=== PATIENT | male | born 2000 | race Caucasian/White ===

== ENCOUNTER 2023-03-30 11:16 | Emergency (ER) | payer SELFPAY ==
[2023-03-30 11:23] VITALS: BP 112/68; PULSE 85; RESP 20; TEMP 36.9; O2SAT 98; BMI 25.8
--- NOTE | 2023-03-30 11:29 | US_ITS ---
The [address] [address] Patient Name: REYNA RIOS MRN: [id number] date: 2000 Sex: M Assigned Patient Location: ED.MAIN Current Patient Location: ER Accession/Order Number: [id number] Exam Date: 03/30/2023 11:38 Report Date: 03/30/2023 12:51 At the request of: LIZA BURGOS Procedure: US right upper quadrant EXAMINATION: US right upper quadrant HISTORY: Abdominal pain, history of gallbladder issues COMPARISON: No relevant comparison available. TECHNIQUE: Transabdominal evaluation of the right upper quadrant. FINDINGS: LIVER: Normal size and echotexture. Color Doppler demonstrates patent hepatic veins. PORTAL VEIN: Duplex Doppler demonstrates normal hepatopetal flow pattern with flow velocity averaging 35 cm/s. GALLBLADDER: Several polyps versus stones adherent to the gallbladder wall, largest is 5 mm. No abnormal wall thickening or free fluid. BILIARY: No abnormal dilation or stones. Common bile duct diameter is within normal limits. PANCREASE: No visible mass, abnormal atrophy, or duct dilation. KIDNEY: No hydronephrosis. No visible mass or stones. Size: 12.2 x 5.6 x 4.8 cm IMPRESSION: 1. No evidence of acute cholecystitis. 2. Multiple small polyps versus small adherent stones within the gallbladder, of uncertain clinical significance. Electronically authenticated by: BALTA ISRAEL Date: 03/30/2023 12:51
--- NOTE | 2023-03-30 11:32 | ED.ABDPAIN1 ---
HPI - Abdominal Pain General Chief Complaint: Abdominal Pain Stated Complaint: ABDOMINAL PAIN Time Seen by Provider: 03/30/23 11:25 Source: patient Mode of arrival: walk-in Limitations: no limitations History of Present Illness HPI narrative: 22-year-old male presents for abdominal pain. He points across his upper abdomen and states he's had it for a few days. He's been vomiting and having diarrhea. No trauma or fever. He tells me he thinks he may have had a problem with his pancreas in the past and was told at one point he should get his gallbladder taken out.The pain is moderate and continuous and he's asking for pain medicine. No fever. Related Data Previous Rx's Medication Instructions Recorded dicyclomine 10 mg capsule 10 mg PO TID #20 caps 03/30/23 ondansetron HCl 4 mg tablet 4 mg PO Q8H 5 days #15 tabs 03/30/23 Allergies Allergy/AdvReac Type Severity Reaction Status Date / Time shellfish derived Allergy Severe Verified 03/30/23 11:22 Review of Systems ROS Narrative A ten point review of systems is negative except as noted above. Exam Narrative Exam Narrative: Nurses note and vital signs reviewed and patient is not hypoxic. General: The patient appears uncomfortable and in no apparent distress. Skin: Warm, dry, no pallor noted. There is no rash noted. Head: Normocephalic, atraumatic Eye: Normal conjunctiva, no drainage, EOMI. PERRL Ears, Nose, Mouth, and Throat: oral mucosa is moist. Nares patent. Cardiovascular: Regular Rate and Rhythm Respiratory: Patient is in no distress, no accessory muscle use, lungs are clear to auscultation, no wheezing, rales or rhonchi Back: non-tender GI: Normal bowel sounds, Mild tenderness to palpation across the upper abdomen, no masses appreciated. No rebound, guarding, or rigidity noted. Musculoskeletal: The patient has no evidence of calf tenderness, no pitting edema, symmetrical pulses noted bilaterally Neurological: A&O x4, normal speech Psychiatric: Cooperative Constitutional Vital Signs - 24 hr 03/30/23 11:23 Temperature 98.5 F Pulse Rate [Monitor] 85 Respiratory Rate 20 Blood Pressure [Left Arm] 112/68 Pulse Oximetry 98 Course Vital Signs Vital signs: Vital Signs Temperature 98.5 F 03/30/23 11:23 Pulse Rate 85 03/30/23 11:23 Respiratory Rate 20 03/30/23 11:23 Blood Pressure 112/68 03/30/23 11:23 Pulse Oximetry 98 03/30/23 11:23 Temperature 98.5 F 03/30/23 11:23 Pulse Rate 85 03/30/23 11:23 Respiratory Rate 20 03/30/23 11:23 Blood Pressure 112/68 03/30/23 11:23 Pulse Oximetry 98 03/30/23 11:23 MDM - Abdominal Pain MDM Narrative Medical decision making narrative: Laboratory analysis is negative. Gallbladder ultrasound shows some possible stones. He does not have acute cholecystitis or pancreatitis. He doesn't require admission the hospital. He is hungry and wants to eat here and he is able to be discharged. Treatment diagnosis and follow-up were discussed with the patient. Differential Diagnosis Differential diagnosis: Likely abdominal pain, constipation, gastroenteritis, pancreatitis and small bowel obstruction Lab Data Attestation: I reviewed the patient's lab results. Labs: Lab Results 03/30/23 Range/Units 11:40 WBC 7.8 (4.0-11.0) 10^3/uL RBC 4.73 (4.70-6.10) 10^6/uL Hgb 14.0 (14.0-18.0) g/dL Hct 41.9 L (42.0-54.0) % MCV 88.6 (80.0-94.0) fL MCH 29.6 (25.9-34.0) pg MCHC 33.4 (29.9-35.2) g/dL RDW 12.6 (11.0-15.0) % Plt Count 275 (150-450) 10^3/uL MPV 8.5 L (9.5-13.5) fL Neut % (Auto) 47.8 (43.0-75.0) % Lymph % (Auto) 28.4 (20.5-60.0) % Jenkins % (Auto) 8.1 (1.7-12.0) % Eos % (Auto) 12.4 H (0.9-7.0) % Baso % (Auto) 0.8 (0.2-2.0) % Neut # (Auto) 3.7 (1.4-6.5) 10^3/uL Lymph # (Auto) 2.2 (1.2-3.8) 10^3/uL Jenkins # (Auto) 0.6 (0.3-0.8) 10^3/uL Eos # (Auto) 1.0 H (0.0-0.7) 10^3/uL Baso # (Auto) 0.1 (0.0-0.1) 10^3/uL Abs Immat Gran (auto) 0.19 H (0.00-0.03) 10^3/uL Imm/Tot Granulo (auto) 2.5 H (0.0-0.5) % Sodium 139 (136-145) mmol/L Potassium 3.8 (3.5-5.1) mmol/L Chloride 103 (98-107) mmol/L Carbon Dioxide 27.8 (21.0-32.0) mmol/L Anion Gap 12.0 BUN 15.0 (7.0-18.0) mg/dL Creatinine 0.83 (0.70-1.30) mg/dL Est GFR ( Amer) >60 (>=60) Est GFR (Non-Af Amer) >60 (>=60) BUN/Creatinine Ratio 18.1 Glucose 110 H (74-106) mg/dL Calcium 8.7 (8.5-10.1) mg/dL Total Bilirubin 0.1 L (0.2-1.0) mg/dL AST 7 L (15-37) U/L ALT 20 (16-63) U/L Alkaline Phosphatase 73 (46-116) U/L Total Protein 6.9 (6.4-8.2) g/dL Albumin 3.4 (3.4-5.0) g/dL Globulin 3.5 g/dL Albumin/Globulin Ratio 1.0 Amylase 46 (25-115) U/L Lipase 62.0 L (73.0-393.0) U/L Discharge Plan Discharge Chief Complaint: Abdominal Pain Clinical Impression: Abdominal pain Patient Disposition: Home, Self-Care Time of Disposition Decision: 13:01 Condition: Good Mode of Transportation: Private Vehicle Prescriptions / Home Meds: New dicyclomine 10 mg capsule 10 mg PO TID Qty: 20 0RF ondansetron HCl 4 mg tablet 4 mg PO Q8H 5 Days Qty: 15 0RF Instructions: Abdominal Pain (ED) Stand Alone Forms: Portal Instructions Referrals: Physician,Non-Staff, MD [Primary Care Provider] - 1 week
[2023-03-30] MEDS: ONDANSETRON PF 4 MG/2 ML VIAL IV (11:48)
[2023-03-30] MEDS: KETOROLAC TROMETHAMINE 30 MG/ML VIAL IVP (11:48)
[2023-03-30] MEDS: 0.9 % SODIUM CHLORIDE 1,000 ML 100 ML IV (11:49)
[2023-03-30 12:04] LABS: Basophils Absolute Auto 0.1 10^3/uL (0.0-0.1); Basophils Percent Auto 0.8 % (0.2-2.0); Eosinophils Percent Auto 12.4 % (0.9-7.0); Hematocrit 41.9 % (42.0-54.0); Immature Granulocytes Abs Auto 0.19 10^3/uL (0.00-0.03); Immature Granulocytes Pct Auto 2.5 % (0.0-0.5); Lymphocytes Absolute Auto 2.2 10^3/uL (1.2-3.8); Lymphocytes Percent Auto 28.4 % (20.5-60.0); Mean Corpuscular HGB Conc 33.4 g/dL (29.9-35.2); Mean Corpuscular Hemoglobin 29.6 pg (25.9-34.0); Mean Corpuscular Volume 88.6 fL (80.0-94.0); Mean Platelet Volume 8.5 fL (9.5-13.5); Monocytes Absolute Auto 0.6 10^3/uL (0.3-0.8); Monocytes Percent Auto 8.1 % (1.7-12.0); Neutrophils Absolute Auto 3.7 10^3/uL (1.4-6.5); Neutrophils Percent Auto 47.8 % (43.0-75.0); Platelet Count 275 10^3/uL (150-450); Red Blood Count 4.73 10^6/uL (4.70-6.10); Red Cell Distribution Width 12.6 % (11.0-15.0); White Blood Count 7.8 10^3/uL (4.0-11.0)
[2023-03-30 12:21] LABS: Alanine Aminotransferase 20 U/L (16-63); Albumin Level 3.4 g/dL (3.4-5.0); Alkaline Phosphatase 73 U/L (46-116); Amylase 46 U/L (25-115); Aspartate Amino Transferase 7 U/L (15-37); BUN Creatinine Ratio 18.1; Bilirubin Total 0.1 mg/dL (0.2-1.0); Calcium 8.7 mg/dL (8.5-10.1); Carbon Dioxide 27.8 mmol/L (21.0-32.0); Chloride 103 mmol/L (98-107); Estimated GFR (African America >60 (>=60); Estimated GFR (Non-African Ame >60 (>=60); Globulin 3.5 g/dL; Glucose 110 mg/dL (74-106); Potassium 3.8 mmol/L (3.5-5.1); Sodium 139 mmol/L (136-145); Total Protein 6.9 g/dL (6.4-8.2)
[2023-03-30 13:28] VITALS: BP 117/65; PULSE 82; RESP 16; O2SAT 99
== END 2023-03-30 13:32 | disposition home or self-care (01) ==
PROVIDERS: Emergency Provider Emergency Medicine
DX: R10.9 Unspecified abdominal pain (principal)
CPT/HCPCS: 36415; 76705; 80053; 81003; 82150; 83690; 85025; 96374; 96375; 99284

== ENCOUNTER 2025-03-09 10:55 | Emergency (ER) | payer OTHER, SELFPAY ==
[2025-03-09 11:01] VITALS: BP 128/77; PULSE 76; O2SAT 99
--- NOTE | 2025-03-09 11:17 | CT_ITS ---
The [address] [address] Patient Name: REYNA RIOS MRN: [id number] date: 2000 Sex: M Assigned Patient Location: ED.MAIN Current Patient Location: ED.MAIN Accession/Order Number: [id number] Exam Date: 03/09/2025 12:07 Report Date: 03/09/2025 12:09 At the request of: TIMUR BECERRA MD Procedure: CT head/brain wo con Unenhanced head CT TECHNIQUE: Contiguous axial imaging of the head. The CT exam was performed using one or more the following dose reduction techniques: Automated exposure control, adjustment of the MA and/or Kv according to patient size, or use of the iterative reconstruction technique. COMPARISON: None HISTORY: Headache VENTRICLES: Within normal limits ATROPHY: None BRAIN PARENCHYMA: Adequate nance-white matter differentiation identified. HEMORRHAGE: None HERNIATION: No mass effect or herniation INFARCTION: No recent vascular distribution infarction is seen. EXTRA-AXIAL FLUID COLLECTIONS None MIDBRAIN: Unremarkable [place]: Unremarkable MEDULLA: Unremarkable SINUSES: Sphenoid sinus retention cyst/mucosal polyp. ORBITS: Grossly unremarkable MASTOIDS: Unremarkable BONY STRUCTURES Intact ADDITIONAL FINDINGS: CT/CT head/brain wo con IMPRESSION: No acute findings. Impression dictated by: Flaco Mantilla M.D. 03/09/2025 12:09 PM Dictation Location: [place] [address] Electronically authenticated by: [id number] Y Date: 03/09/2025 12:09
[2025-03-09] MEDS: KETOROLAC TROMETHAMINE 30 MG/ML VIAL IM (11:53)
--- NOTE | 2025-03-09 12:16 | ED.GENADUL1 ---
HPI HPI - General Adult General Chief complaint: Headache Stated complaint: HEADACHE Time Seen by Provider: 03/09/25 11:17 Source: patient Mode of arrival: walk-in Limitations: no limitations History of Present Illness HPI narrative: The patient is coming to the ER from a detox facility where he was getting treatment for meth detox he is coming to the ER with a headache for the last 1 week. 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 although the patient is referred to that at the cancer he was not sure what kind of cancer , the patient also denies treatment which she does not fit his history The patient denies any alarming symptoms of any blurry vision double vision or any other concerns Related Data Previous Rx's ?Medication ?Instructions ?Recorded dicyclomine 10 mg capsule 10 mg PO TID #20 caps 03/30/23 ondansetron HCl 4 mg tablet 4 mg PO Q8H 5 days #15 tabs 03/30/23 Allergies Allergy/AdvReac Type Severity Reaction Status Date / Time shellfish derived Allergy Severe Swelling Verified 03/09/25 11:01 of Lip/Tongue/Throat Opioid HPI Opioid Management Most Recent Opioid Data: Last Pain Scale 9 Today, 11:01 Review of Systems ROS Status of ROS 10 or more systems reviewed and unremarkable except as noted in history and below PFSH PFSH Social History Little interest or pleasure in doing things: not at all Feeling down, depressed, or hopeless: not at all Exam Narrative Exam Narrative: Nurses notes and vital signs reviewed and patient is not hypoxic. General: Well-appearing and in no apparent distress. Skin: Warm, dry, no pallor noted. No rash. Head: Normocephalic, atraumatic. Neck: Supple, non-tender. Eye: Pupils are equal, round and EOMI. No scleral icterus. Ears, Nose, Mouth, and Throat: TM are clear, no nasal mucosal hypertrophy. Oral mucosa is moist, no posterior oropharynx erythema, uvula is mid-line Cardiovascular: Regular Rate and Rhythm without murmur, gallop or rub. Respiratory: No accessory muscle use or respiratory distress. Lungs are clear to auscultation, no wheezing, rales or rhonchi Chest Wall: no tenderness Back: No midline thoracic or lumbar vertebral tenderness. No CVA tenderness Musculoskeletal: normal ROM, no calf or popliteal tenderness, no lower extremity edema/swelling GI: Abdomen is soft, non-distended. Normal bowel sounds. No masses appreciated. No tenderness to palpation. No rebound, guarding, or rigidity noted. Neurological: A&O x4. No cranial nerve dysfunction observed. No truncal ataxia. Moves all extremities. Sensation intact. Psychiatric: Cooperative and interactive. Normal mood and affect. Constitutional Vital Signs, click to edit/add: Last Vital Signs Pulse 76 03/09/25 11:01 Resp 16 03/09/25 11:01 BP 128/77 03/09/25 11:01 Pulse Ox 99 03/09/25 11:01 O2 Del Method Room Air 03/09/25 11:01 Course Vital Signs Vital signs: Vital Signs Pulse Rate 76 03/09/25 11:01 Respiratory Rate 16 03/09/25 11:01 Blood Pressure 128/77 03/09/25 11:01 Pulse Oximetry 99 03/09/25 11:01 Oxygen Delivery Method Room Air 03/09/25 11:01 Pulse Rate 76 03/09/25 11:01 Respiratory Rate 16 03/09/25 11:01 Blood Pressure 128/77 03/09/25 11:01 Pulse Oximetry 99 03/09/25 11:01 Oxygen Delivery Method Room Air 03/09/25 11:01 Medical Decision Making [facility] Narrative Medical decision making narrative: Due to the patient history and the fact that he been having this pain for the last 1 week the patient had a CT head showing no acute significant pathology He was provided Toradol in the ER Patient was discharged back to the [facility] Discharge Plan Discharge Chief Complaint: Headache Clinical Impression: Headache Patient Disposition: Home, Self-Care Time of Disposition Decision: 12:17 Condition: Good Prescriptions / Home Meds: No Action dicyclomine 10 mg capsule 10 mg PO TID Qty: 20 0RF ondansetron HCl 4 mg tablet 4 mg PO Q8H 5 Days Qty: 15 0RF Print Language: Welsh Instructions: General Headache (ED) Referrals: Physician,Non-Staff, MD [Primary Care Provider] - 1 week Discharge Date/Time: 03/09/25 12:42
== END 2025-03-09 12:42 | disposition home or self-care (01) ==
PROVIDERS: Emergency Provider Emergency Medicine
DX: R51.9 Headache, unspecified (principal); H54.61 Unqualified visual loss, right eye, normal vision left eye
CPT/HCPCS: 70450; 96372; 99285; J1885

== ENCOUNTER 2025-03-12 14:22 | Emergency (ER) | payer OTHER, SELFPAY ==
--- OUTSIDE RECORDS SUMMARY | 2025-02-27 22:07 | XMS_ITS | Continuity of Care Document ---
Author Organization [facility] Address [address] [place] [address] Phone Care Team Providers Care Director Of Student Services Name Role Phone NO FAMILY, PHYSICIAN Primary Care Provider Unava ilMikhail Coles DO Emergency Provider Unavai Venkatesh Rothman MD Admit Provider [phone] Venkatesh Calles MD Attending Provider Care Teams Patient Care Team Team Status: Active Member Role Status Dates PHYSICIAN NO FAMILY Primary Care Provider Active Visit Care Team Team Status: Inactive Member Role Status Dates PHYSICIAN NO FAMILY Primary Care Provider Active Start: February 19, 2025 End: February 21, 2025 Mikhail Mark DO Emergency Provider Active Start: February 19, 2025 End: February 21, 2025 Venkatesh Calles MD Admit Provider, Attclaudy rosarioing Provider Active Start: February 19, 2025 End: February 21, 2025 Patient Care Team Team Status: Active Member Role Status Dates PHYSICIAN NO FAMILY Primary Care Provider Active Start: February 19, 2025 Mikhail Mark DO Emergency Provider Active Start: February 19, 2025 Venkatesh Calles MD Admit Provider, Atte nding Provider, Other Provider Active Start: February 19, 2025 Chief Complaint and Reason for Visit Chief Complaint Admit Date suicidal February 19, 2025 12:06 am suicidal February 19, 2025 12:41 pm Reason for Visit Admit Date MDD (major depressive disorder) February 12:06am Suicidal ideation February 19, 2025 12:06 am Allergies, Adverse Reactions, Alerts Allergen Type Severity Reaction Last Updated Verified Status shellfish derived Allergy Unknown Unknown Reaction M ay 2024 8:50pm Yes Active Social History Smoking Status Status Start Date End Date Date of Observa tion Smoker (finding) February 18, 2 025 8:57pm Observation Status Observation Response Date of Response Patient Sex Male February 21, 2025 1 2:09pm Assigned Sex Male 2000 Family History Relationship Condition Age at Onset Recorded Date/T maya Not Specified No pertinent family history Unknown Problems Active Problems Medical Problem Onset Date Status MDD (major depressive disorder) Active Suicidal ideation Active Medications Medication Status Dose Units Route Directions Qty Days St art Date Stop Date End Date Instructions Trazodone 50 mg Tablet Active 50 MG PO Daily at bedtime as needed for Insomnia February 21, 2025 12:00a m Nicotine (Polacrilex) 2 mg Gum Active 2 MG BUCCAL Q2H as needed for Nicotine Cravings February 21, 2025 12:00a m Hydroxyzine Pamoate 50 mg Capsule Active 50 MG PO Q6H as needed for Anxiety 60 February 21, 2025 12:00a m Sertraline 50 mg Tablet Active 50 MG PO Every morning February 21, 2025 12:00a m Relevant Diagnostic Tests and/or Laboratory Data Laboratory Results Test Date/Time Result Interpretation Reference Range Result Comment Performing Site Corrected White Blood Count February 18, 2025 8:53pm 5.4 10*3/uL 4.1-10.5 [facility] [id number] [address] [facility] [address] Uncorrected WBC Count February 18, 2025 8:53pm 5.4 10*3/uL 4.1-10.5 [facility] [id number] [address] [facility] [address] Red Blood Count February 18, 2025 8:53pm 4.90 10*6/uL 3.90-5.60 [facility] [id number] [address] [facility] [address] Hemoglobin February 18, 2025 8:53pm 14.7 g/dL 13.0-17.0 [facility] [id number] [address] [facility] [address] Hematocrit February 18, 2025 8:53pm 42.2 % 38.8-50.0 [facility] [id number] [address] [facility] [address] Mean Corpuscular Volume February 18, 2025 8:53pm 86.1 fL 83.5-101 [facility] [id number] [address] [facility] [address] Mean Corpuscular Hemoglobin February 18, 2025 8:53pm 30.0 pg 27.5-35.2 [facility] [id number] [address] [facility] [address] Mean Corpuscular Hemoglobin Concent February 18, 2025 8:53pm 34.8 g/dL 32.5-35.6 [facility] [id number] [address] [facility] [address] Red Cell Distribution Width February 18, 2025 8:53pm 12.6 % 12.0-14.8 [facility] [id number] [address] [facility] [address] Platelet Count February 18, 2025 8:53pm 378 10*3/uL 150-450 [facility] [id number] [address] [facility] [address] Mean Platelet Volume February 18, 2025 8:53pm 6.7 fL 6.6-10.1 [facility] [id number] [address] [facility] [address] Monocyte Distribution Width February 18, 2025 8:53pm 17.77 % 0.00-20.00 [facility] [id number] [address] [facility] [address] Neutrophils (%) (Auto) February 18, 2025 8:53pm 46.0 % . [facility] [id number] [address] [facility] [address] Lymphocytes (%) (Auto) February 18, 2025 8:53pm 40.7 % . [facility] [id number] [address] [facility] [address] Monocytes (%) (Auto) February 18, 2025 8:53pm 8.3 % . [facility] [id number] [address] [facility] [address] Eosinophils (%) (Auto) February 18, 2025 8:53pm 4.1 % . [facility] [id number] [address] [facility] [address] Basophils (%) (Auto) February 18, 2025 8:53pm 0.9 % . [facility] [id number] [address] [facility] [address] Nucleated RBC Relative Count (auto) February 18, 2025 8:53pm 0.2 /100{WBC} 0-0.5 [facility] [id number] [address] [place] 6238870 Neutrophils # (Auto) February 18, 2025 8:53pm 2.5 10*3/uL 1.8-7.7 [facility] [id number] [address] [place] 6238870 Lymphocytes # (Auto) February 18, 2025 8:53pm 2.2 10*3/uL 1.00-4.8 [facility] [id number] [address] [place] 6238870 Monocytes # (Auto) February 18, 2025 8:53pm 0.4 10*3/uL 0.0-0.8 [facility] [id number] [address] [facility] [address] Eosinophils # (Auto) February 18, 2025 8:53pm 0.2 10*3/uL 0.0-0.45 [facility] [id number] [address] [place] 6238870 Basophils # (Auto) February 18, 2025 8:53pm 0.0 10*3/uL 0.0-0.2 [facility] [id number] [address] [place] 6238870 Urine Color February 18, 2025 9:00pm Light-yel low Yellow [facility] [id number] [address] [place] 6238870 Urine Appearance February 18, 2025 9:00pm Turbid Abnormal (applies to non-numeric results) Clear [facility] [id number] [address] [place], [place] [address] Urine Specific [place] February 18, 2025 9:00pm 1.022 1.001-1.03 0 [facility] [id number] [address] [facility] [address] Urine pH February 18, 2025 9:00pm 8.0 5.0-9.0 [facility] [id number] [address] [facility] [address] Urine Leukocyte Esterase February 18, 2025 9:00pm Negative Negative [facility] [id number] [address] [facility] [address] Urine Nitrite February 18, 2025 9:00pm Negative Negative [facility] [id number] [address] [facility] [address] Urine Protein February 18, 2025 9:00pm Negative mg/dL Negative [facility] [id number] [address] [facility] [address] Urine Glucose (UA) February 18, 2025 9:00pm Normal mg/dL Normal [facility] [id number] [address] [facility] [address] Urine Ketones February 18, 2025 9:00pm Negative Negative [facility] [id number] [address] [facility] [address] Urine Urobilinogen February 18, 2025 9:00pm Normal mg/dL Normal [facility] [id number] [address] [facility] [address] Urine Bilirubin February 18, 2025 9:00pm Negative Negative [facility] [id number] [address] [facility] [address] Urine Occult Blood February 18, 2025 9:00pm Negative Negative [facility] [id number] [address] [facility] [address] Urine RBC February 18, 2025 9:00pm 1-2 [HPF] 0-4 [facility] [id number] [address] [facility] [address] Urine WBC February 18, 2025 9:00pm 1-2 [HPF] 0-4 [facility] [id number] [address] [facility] [address] Urine Squamous Epithelial Cells February 18, 2025 9:00pm N/A [facility] [id number] [address] [facility] [address] Urine Bacteria February 18, 2025 9:00pm None seen [HPF] None Seen [facility] [id number] [address] [facility] [address] Urine Hyaline Casts February 18, 2025 9:00pm None [LPF] 0-8 [facility] [id number] [address] [facility] [address] Urine Mucus February 18, 2025 9:00pm Rare [LPF] [facility] [id number] [address] [facility] [address] Glucose Level February 18, 2025 9:23pm 99 mg/dL 70-100 ADA recommended reference rangeRandom Glucose Reference Range is dependent on time and content of last meal. Glucose of more than 200 mg/dL in a nonstressed, ambulatory subject supports the diagnosis of Diabetes Mellitus. [facility] [id number] [address] [facility] [address] Blood Urea Nitrogen February 18, 2025 9:23pm 15 mg/dL 7-25 [facility] [id number] [address] [facility] [address] Creatinine February 18, 2025 9:23pm 0.91 mg/dL 0.70-1.30 [facility] [id number] [address] [facility] [address] Estimated GFR (CKD-EPI) February 18, 2025 9:23pm > 60.0 mL/Min [facility] [id number] [address] [facility] [address] Sodium Level February 18, 2025 9:23pm 136 mmol/L 136-145 [facility] [id number] [address] [facility] [address] Potassium Level February 18, 2025 9:23pm 4.3 mmol/L 3.5-5.1 [facility] [id number] [address] [place] 6[address]8870 Chloride Level February 18, 2025 9:23pm 105 mmol/L 98-107 [facility] [id number] [address] [place] 6238870 Carbon Dioxide Level February 18, 2025 9:23pm 25.0 mmol/L 21.0-31.0 [facility] [id number] [address] [place] 6238870 Anion Gap February 18, 2025 9:23pm 10.3 mEq/L 6.0-15.0 [facility] [id number] [address] [facility] [address] Calcium Level February 18, 2025 9:23pm 9.1 mg/dL 8.6-10.3 [facility] [id number] [address] [facility] [address] Total Protein February 18, 2025 9:23pm 6.7 g/dL 6.4-8.9 [facility] [id number] [address] [facility] [address] Albumin February 18, 2025 9:23pm 4.2 g/dL 3.5-5.7 [facility] [id number] [address] [facility] [address] Globulin February 18, 2025 9:23pm 2.5 g/dL [facility] [id number] [address] [place] 6[address]8870 Albumin/Globul in Ratio February 18, 2025 9:23pm 1.7 [facility] [id number] [address] [facility] [address] Total Bilirubin February 18, 2025 9:23pm 0.2 mg/dL Below low normal 0.3-1.0 [facility] [id number] [address] [facility] [address] Aspartate Amino Transf (AST/SGOT) February 18, 2025 9:23pm 12 U/L Below low normal 13-39 [facility] [id number] [address] [place] 6238870 Alanine Aminotransfera se (ALT/SGPT) February 18, 2025 9:23pm 9 U/L 7-52 [facility] [id number] [address] [facility] [address] Alkaline Phosphatase February 18, 2025 9:23pm 62 U/L 34-104 [facility] [id number] [address] [facility] [address] Cholesterol Level February 18, 2025 9:23pm 159 mg/dL 140-200 Chol less than 200 mg/dl low riskChol 201-239 mg/dl borderline riskChol 240 mg/dl and greater high risk [facility] [id number] [address] [facility] [address] HDL Cholesterol February 18, 2025 9:23pm 34 mg/dL 23-92 HDL CHOL ATP-III CLASSIFICATION Cardiovascular RiskHDL > or equal to 60 mg/dL LOWHDL < 40 mg/dL HIGH [facility] [id number] [address] [facility] [address] Triglycerides Level February 18, 2025 9:23pm 163 mg/dL Above high normal 0-149 TRIG ATP III CLASSIFICATIONTR IG less than 150 mg/dL NormalTRIG 150-199 mg/dL Borderline highTRIG 200-500 mg/dL High TRIG greater than 500 mg/dL Very highStandard traceable to the Center for Disease Conrtrol and Prevention (CDC) test method. [facility] [id number] [address] [facility] [address] LDL Cholesterol, Calculated February 18, 2025 9:23pm 92 mg/dL 0-100 LDL ATP III CLASSIFICATIONLD L less than 100 mg/dL OptimalLDL 100-129 mg/dL Near or above optimalLDL 130-159 mg/dL Borderline highLDL 160-189 mg/dL HighLDL greater than 189 mg/dL Very high [facility] [id number] [address] [facility] [address] VLDL Cholesterol February 18, 2025 9:23pm 32 mg/dL [facility] [id number] [address] [place], [place] [address] Cholesterol/HD L Ratio February 18, 2025 9:23pm 4.7 <5.0 [facility] [id number] [address] [place], [place] [address] Thyroid Stimulating Hormone 3rd Gen February 18, 2025 9:23pm 2.04 u[iU]/mL 0.45-5.33 [facility] [id number] [address] [place] [address] 25-Hydroxy Vitamin D Total February 18, 2025 9:23pm 23.3 ng/mL Below low normal 30-100 VITAMIN D STATUS 25(OH)VITAMIN D RANGE (ng/mL) Deficient <20 Insufficient 20 to <30Sufficient 30 to 100Reference: Audrey COUCH,Flor COCHRAN, Darryl TORRES, et al. Evaluation,treat ment, and prevention of vitamin D deficiency; an Endocrine Society clinical practice guideline. JCEM. 2010; 96(7):1911-30. [facility] [id number] [address] [place] 6[address]8870 Pharmacy Creatinine Clearance (Chem February 18, 2025 9:23pm 133.73 [facility] [id number] [address] [place] 6[address]8870 Urine Amphetamines Screen February 18, 2025 9:00pm Negative Negative [facility] [id number] [address] [place], [place] [address] Urine Barbiturates Screen February 18, 2025 9:00pm Negative Negative [facility] [id number] [address] [place], [place] [address] Urine Benzodiazepine s Screen February 18, 2025 9:00pm Negative Negative [facility] [id number] [address] [place] [address] Urine Cocaine Screen February 18, 2025 9:00pm Negative Negative [facility] [id number] [address] [place] [address] Urine Opiates Screen February 18, 2025 9:00pm Negative Negative [facility] [id number] [address] [place], [place] [address] Urine Phencyclidine Screen February 18, 2025 9:00pm Negative Negative [facility] [id number] [address] [place], [place] [address] Urine Marijuana (THC) Screen February 18, 2025 9:00pm Positive Above high normal Negative These are unconfirmed results and should not be used for legal purposes. Drug Cut-Off Concentration: AMPH 1000 ng/mL BROOK[place]N 200 ng/mL KARIN 200 ng/mL COCM 300 ng/mL OP 300 ng/mL PCP 25 ng/mL THC 20 ng/mL [facility] [id number] [address] [place] [address] Ethyl Alcohol Level February 18, 2025 9:23pm 14 mg/dL [facility] [id number] [address] [place] [address] Percent Ethyl Alcohol February 18, 2025 9:23pm 0.014 % [facility] [id number] [address] [place] [address] Vital Signs Vital Reading Result Reference Range Collection Date/Time Height 69 [in_i] February 19, 2025 2:39pm Weight 86.10 kg February 19, 2025 1:22am Body Temperature 98.2 [degF] 97.6-99.0 February 21, 2 025 11:40am Heart Rate 56 /min 60-100 February 21, 2025 7:30am Respiratory rate 18 /min 12-24 February 21, 2 025 7:30am Oxygen saturation by Pulse oximetry 97 % 95-100 February 21, 2025 7:30a m BP Systolic 110 mm[Hg] 100-140 February 21, 2025 7:30am BP Diastolic 66 mm[Hg] 60-100 February 21, 2025 7:30am Advance Directives Advance Directive Response Recorded Date/ Time Advance Directives No February 18 9:02pm Insurance Providers Guarantor Mikhail Hooker [facility] [address] [facility] [address] Contact Info. Home Phone: Payer Policy Id Coverage Id Subscriber's Name Subscriber Id Effective Date Expiration Date [facility] [id number] Mikhail Wagner Hooker [id number] Encounters Encounter Location(s) Arrival/Admit Date Discharge/Depart Date Provider(s) Discharged Inpatient [facility] February 19, 2025 12:06am February 21, 2025 12:07pm Venkatesh Calles MD Non-patient / Non-visit [facility] Med OutPt February 19, 2025 12:41pm Venkatesh Calles MD Recent Diagnosis Onset Date Admit Date MDD (major depressive disorder) February 19, 2025 12:06am Suicidal ideation February 19, 2025 12:06am Functional Status Observation Response Date Recorded Dressing Patient at Baseline February 21 11:40am Eating Patient at Baseline February 21 11:40am Bathing Patient at Baseline February 21 11:40am Disability Status Patient at Baseline February 21, 2025 11:40am Functional Status Assessments Mental Status Observation Response Date Recorded Cognitive Status Patient at Baseline February 21, 11:40am Cognitive/Mental Status Assessments Assessments Diagnosis Onset Date Resolution Status Admit Date MDD (major depressive disorder) acut e February 19, 2025 12:06am Suicidal ideation acute February 12:06am Plan of Treatment Future Tests Future scheduled test information is unavailable Pending Tests Pending diagnostic test information is unavailable Future Visits Future appointment information is unavailable Referrals to Other Providers Reason for Referral Referral Start Date Provider Provider Contact Information Provider Address To Manage patient care [facility] Work Phone: [address] [place] [address] Future Procedures Procedure Name Ordered Date Scheduled Date Admit Status Order February 19, 2025 12:53am February 192024 12:53am Consult to Case Management February 19, 2025 1:34am February 19, 2025 1:34am Discharge Order February 21, 2025 10:18am February 21, 2025 10:18am Future Medications Future medication information is unavailable Patient Instructions Instruction Admit Date Depression in adults - Discharge instruc tions February 19, 2025 12:06am Goals Acute Goals Author Authored Date Understand disease process * Understands disease management strategies * Understands anatomy and physiology * Describes reportable s/s * Understands treatment plan * Understands medication regime [facility] February 21, 2025 12:09pm Effective coping [facility] February 21, 2025 12:09pm Discharge Summary Note Author Venkatesh Calles [facility] Note Date/Time February 21, 2025 11:56 am [facility] [address] [place] [address] Discharge Summary Signed Patient: Mikhail Hooker MR#: [id number] : 2000 Acct:[id number] Age/Sex: 24 / M Adm Date: 5 Loc: Room: [address] [place] [address]: Venkatesh Calles MD Copies to: Venkatesh Calles MD NO FAMILY PHYSICIAN~ Providers Date of Discharge: 02/21/25 Discharging Provider: Venkatesh Calles Primary Care Provider: PHYSICIAN NO FAMILY Consults: 02/19/25 01:34 Consult to Case Management Routine Comment: CM Reason for Consult: Drug/Alcohol Rehab Other and/or Abuse/Neglect Consult Reasons: [facility] - Wants to Return Discharge Diagnosis (1) MDD (major depressive disorder): (2) Suicidal ideation: Final Diagnosis Final Discharge Diagnosis: Major depressive disorder Stimulant use disorder Summary Hospital Course Hospital course: Mr. Hooker is a 24 year old male who presented due to concern for depression and suicidal ideation from a rehab facility. Patient seems tired and limited replies. Assessment is limited today. He does report that he has been depressed. He reported that this has been going on for the past 3 days. He denies any specific stressor at this time. He is not sure about what other depressive symptoms he has been experiencing. He does report prior psychiatric hospitalization and prior suicide attempts related to his mental health. He does report some methamphetamine use and that is why he is atthe rehab facility. Patient was started on Zoloft. He reported improvement of his symptoms during his hospitalization. He did not participate much in groups but did come out of his meals for food. His sleep was normal during his hospitalization. He started to notice improvement of his symptoms and stated that he felt that they were improving. He denied any suicidal thoughts once his symptoms are under better control. He stated that he would continue his medications and follow-up with outpatient services. He was looking forward to returning back to the rehabfacility to continue treatment. Time spent discussing smoking cessation with patient: 3 to 10 minutes Condition Condition at Discharge: Stable Status at Discharge Cognitive/behavioral status at discharge: Mental Status Exam: Appearance: grossly normal Mental Status: mental status grossly normal Mood: Euthymic mood Affect: Normal affect Speech and Movement: speech normal, movement normal Attitude: cooperative Thought Process: normal Thought Content: Denied hallucinations, no homicidality and no suicidality Insight: Good Judgment: Good Functional status at discharge: independent ambulation Overall status at discharge: patient is back to baseline Time Spent with Patient Time spent providing/coordinating discharge services (# min): 30 Discharge Plan Discharge Plan Patient Disposition: Chemical Dependency Activity: No Activity Restriction Diet: Regular Additional Instructions: Important Contact Information You can call [facility] at [phone] any time day or night if you have emergent questions or question regarding discharge instructions. If at any time you are feeling an increase inyour psychiatric symptoms, call your physician or behavioral healthcare provider. If any time you have thoughts of harming yourself or others contact one of the following: Call (available 01/05) Crisis Text Line (available 01/05) text 4HOPE to [phone] [facility] Hope Line (available 8 a.m. Midnight) call [phone] ([phone]) Instructions: Depression in adults - Discharge instructions Prescriptions: New trazodone 50 mg Tablet 50 mg PO QHS PRN (Reason: Insomnia) Qty: 30 0RF nicotine (polacrilex) 2 mg Gum 2 mg buccal Q2H PRN (Reason: Nicotine Cravings) Qty: 20 0RF hydroxyzine pamoate 50 mg Capsule 50 mg PO Q6H PRN (Reason: Anxiety) 30 Days Qty: 60 0RF sertraline 50 mg Tablet 50 mg PO QAM 30 Days Qty: 30 0RF Follow Up: [facility] [Outside] (To Manage patient care) Exam Physical Exam Vital Signs: Temp Pulse Resp BP Pulse Ox O2 Del Method 98.2 F 56 L 18 110/66 97 Room Air 02/21/25 07:30 02/21/25 07:30 02/21/25 07:30 02/21/25 07:30 02/21/25 07:30 02/21/25 07:46 Documented By: Venkatesh Calles MD 02/21/25 1017 Signed By: <Electronically signed by Venkatesh Calles MD> 02/21/25 1156 History & Physical Note Author Venkatesh Calles [facility] Note Date/Time February 19, 2025 12:44 pm [facility] [address] [place] [address] Psychiatry H&P Signed Patient: Mikhail Hooker MR#: [id number] : 2000 Acct:[id number] Age/Sex: 24 / M Adm Date: 5 Loc: Room: [address] [place] [address] Type: ADM IN Attending Dr: Venkatesh Calles MD Copies to: Venkatesh Calles MD NO FAMILY PHYSICIAN~ Date of Service: 02/19/2025 HPI History of Present Illness History of present illness: Mr. Hooker is a 24 year old male who presented due to concern for depression and suicidal ideation from a rehab facility. Patient seems tired and limited replies. Assessment is limited today. He does report that he has been depressed. He reported that this has been going on for the past 3 days. He denies any specific stressor at this time. He is not sure about what other depressive symptoms he has been experiencing. He does report prior psychiatric hospitalization and prior suicide attempts related to his mental health. He does report some methamphetamine use and that is why he is atthe rehab facility. Review of symptoms: Unable to assess due to patient's mental status Physical exam: Unable to assess due to patient's mental status Mental Status Exam: Appearance: Laying in bed no acute distress Mental Status: mental status grossly normal Mood: dysthymic mood Affect: Constricted affect Speech and Movement: speech limited, movement normal Attitude: Minimally cooperative Thought Process: normal Thought Content: Denied hallucinations, no homicidality, reported suicidality Insight: fair Judgment: fair [facility] Medical History (Updated 02/19/25 @ 12:44 by Venkatesh Calles MD) PTSD (post-traumatic stress disorder) Schizophrenia Borderline personality disorder Family History (Updated 02/19/25 @ 01:42 by Concepción Villegas RN) Other No significant family history Social History Smoking Status: Current every day smoker Tobacco Type: cigarettes Substance Use Type: Methamphetamine Substance Abuse Comment: 7 days ago - last meth use per patient report. Social History Comments: Patient is homeless, states he lives in a tent [facility]; lives alone. Meds Medications and Allergies Allergies shellfish derived Allergy (Verified 02/18/25 20:50) Unknown Reaction Exam Physical Exam Vital Signs: Temp Pulse Resp BP Pulse Ox O2 Del Method 98.0 F 68 16 108/64 99 Room Air 02/19/25 07:30 02/19/25 07:30 02/19/25 07:30 02/19/25 07:30 02/19/25 07:30 02/19/25 07:30 Results - Psychiatry Labs 02/18/25 20:53 02/18/25 21:23 Psychiatry Labs: 02/18/25 02/18/25 02/18/25 20:53 21:00 21:23 RBC 4.90 Hgb 14.7 Hct 42.2 MCV 86.1 MCH 30.0 MCHC 34.8 RDW 12.6 Plt Count 378 MPV 6.7 Sodium 136 Potassium 4.3 Chloride 105 Carbon Dioxide 25.0 Anion Gap 10.3 BUN 15 Creatinine 0.91 Calcium 9.1 Total Bilirubin 0.2 L AST 12 L ALT 9 Alkaline Phosphatase 62 Total Protein 6.7 Albumin 4.2 Urine Color Light-yellow Urine Appearance Turbid A Urine pH 8.0 Ur Specific [place] 1.022 Urine Protein Negative Urine Glucose (UA) Normal Urine Ketones Negative Urine Occult Blood Negative Urine Nitrite Negative Ur Leukocyte Esterase Negative Urine RBC 1-2 Urine WBC 1-2 Assessment/Plan (1) MDD (major depressive disorder): Plan Patient reporting depression and suicidal thoughts Will start Zoloft 50 mg daily for depression Continue to monitor mental status Encourage group participation and medication compliance Risk benefits alternatives explained Documented By: Venkatesh Calles MD 02/19/25 1241 Signed By: <Electronically signed by Venkatesh Calles MD> 02/19/25 1244 Progress Note Author Venkatesh Calles [facility] Note Date/Time February 20, 2025 12:47 pm [facility] [address] [place] [address] Psychiatry Progress Note Signed Patient: Mikhail Hooker MR#: [id number] : 2000 Acct:[id number] Age/Sex: 24 / M Adm Date: 5 Loc: Room: [address] [place] [address] Type : ADM IN Attending Dr: Venkatesh Calles MD Copies to: ~ Date of Service: 02/20/2025 Subjective Subjective Narrative: Today is hospital day 2. No overnight events. Patient was somnolent nonparticipatory this morning from family. Only answers in one-word sentences. Was laying in bed. Did not get out of bed yesterday. No interest in participating in group activities. Said that he ate breakfast this morning morning. Denies sleeping last night. reports that mood is fine. No anxiety. Denies suicidal ideation homicidal ideation, hallucinations, delusions. Is wondering when he can be discharged. Mental Status Exam: Appearance: Laying in bed no acute distress Mental Status: mental status grossly normal Mood: dysthymic mood Affect: Constricted affect Speech and Movement: speech limited, movement normal Attitude: Minimally cooperative Thought Process: normal Thought Content: Denied hallucinations, no homicidality, no suicidality Insight: fair Judgment: fair Patient was personally seen by me on the day of the encounter. I reviewed the history and performed the elyva elements of the physical examination. I formulated the plan of care and confirmed this with the medical student as notedbelow. Exam Physical Exam Vital Signs: Temp Pulse Resp BP Pulse Ox O2 Del Method 97.8 F 67 18 125/72 100 Room Air 02/20/25 07:30 02/20/25 07:30 02/20/25 07:30 02/20/25 07:30 02/20/25 07:30 02/20/25 07:30 Assessment/Plan Assessment/Plan (1) MDD (major depressive disorder): (2) Suicidal ideation: Plan Doing better at this time. Plan for discharge tomorrow to rehab Continue Zoloft 50 mg daily for depression Continue to monitor mental status Encourage group participation and medication compliance Risk benefits alternatives explained Documented By: Venkatesh Calles MD 02/20/25 0072 Signed By: <Electronically signed by Venkatesh Calles MD> 02/20/25 2432
[2025-03-12 14:29] VITALS: BP 141/73; PULSE 84; TEMP 37; O2SAT 98; BMI 28.9
--- NOTE | 2025-03-12 14:46 | ED.GENADUL1 ---
HPI HPI - General Adult General Stated complaint: HEADACHE, JAW PAIN, NOSE PAIN Time Seen by Provider: 03/12/25 14:30 Source: patient Mode of arrival: walk-in Related Data Previous Rx's ?Medication ?Instructions ?Recorded amoxicillin 875 mg tablet 875 mg PO BID #10 tabs 03/12/25 prednisone 20 mg tablet 60 mg (3 x 20 mg) PO DAILY 7 days 03/12/25 #21 tabs valacyclovir 1 gram tablet 1,000 mg PO TID 7 days #21 tabs 03/12/25 Allergies Allergy/AdvReac Type Severity Reaction Status Date / Time shellfish derived Allergy Severe Swelling Verified 03/12/25 14:29 of Lip/Tongue/Throat Opioid HPI Opioid Management Most Recent Opioid Data: Last Pain Scale 9 03/09/25, 11:01 PFSH PFSH Social History Little interest or pleasure in doing things: not at all Feeling down, depressed, or hopeless: not at all Exam Constitutional Vital Signs, click to edit/add: Last Vital Signs Temp 98.6 F 03/12/25 14:29 Pulse 84 03/12/25 14:29 Resp 16 03/12/25 14:29 BP 141/73 03/12/25 14:29 Pulse Ox 98 03/12/25 14:29 O2 Del Method Room Air 03/12/25 14:29 Course Vital Signs Vital signs: Vital Signs Temperature 98.6 F 03/12/25 14:29 Pulse Rate 84 03/12/25 14:29 Respiratory Rate 16 03/12/25 14:29 Blood Pressure 141/73 03/12/25 14:29 Pulse Oximetry 98 03/12/25 14:29 Oxygen Delivery Method Room Air 03/12/25 14:29 Temperature 98.6 F 03/12/25 14:29 Pulse Rate 84 03/12/25 14:29 Respiratory Rate 16 03/12/25 14:29 Blood Pressure 141/73 03/12/25 14:29 Pulse Oximetry 98 03/12/25 14:29 Oxygen Delivery Method Room Air 03/12/25 14:29 Discharge Plan Discharge Clinical Impression: Facial paralysis/Valier palsy, Otitis media Patient Disposition: Home, Self-Care Prescriptions / Home Meds: New prednisone 20 mg tablet 60 mg PO DAILY 7 Days Qty: 21 0RF amoxicillin 875 mg tablet 875 mg PO BID Qty: 10 0RF valacyclovir 1 gram tablet 1,000 mg PO TID 7 Days Qty: 21 0RF Print Language: Turkmen Instructions: Cardenas Palsy (ED), Ear Infection (ED) Additional Instructions: Take antibiotics as prescribed for your ear infection. Additionally take prednisone and valacyclovir as prescribed for Cardenas's palsy. May take Tylenol or ibuprofen as needed for any pain. Follow-up with neurology for reevaluation in the next week as discussed. Referrals: Betina Martinez DO [Physician, Neurology] - 1 week Physician,Non-Staff, [Primary Care Provider] - 1 week Simba Foster MD [Physician, Neurology] - 1 week Discharge Date/Time: 03/12/25 15:15
--- NOTE | 2025-03-12 14:57 | ED_ITS ---
HPI HPI - General Adult General Stated complaint: HEADACHE, JAW PAIN, NOSE PAIN Time Seen by Provider: 03/12/25 14:30 Source: patient Mode of arrival: walk-in History of Present Illness HPI narrative: The patient is a 24-year-old male who presents to the emergency department today for evaluation of concerns for drooping to the right side of his face. He endorses he was seen in the ER on 03/09 and following this visit 2 days ago developed some drooping to the right side of his face. He does endorse some discomfort to the right side of his face with an ongoing headache. No fevers back pain. Denies any ear pain or sore throat. He states he is having difficulty holding food in the right side of his mouth due to the drooping., Shortness of breath. Additional sick symptoms of nausea or vomiting. Related Data Previous Rx's ?Medication ?Instructions ?Recorded amoxicillin 875 mg tablet 875 mg PO BID #10 tabs 03/12 prednisone 20 mg tablet 60 mg (3 x 20 mg) PO DAILY 7 days 03/12/25 #21 tabs valacyclovir 1 gram tablet 1,000 mg PO TID 7 days #21 tabs 03/12/25 Allergies Allergy/AdvReac Type Severity Reaction Status Date / Time shellfish derived Allergy Severe Swelling Verified 03/12/25 14:29 of Lip/Tongue/Throat Opioid HPI Opioid Management Most Recent Opioid Data: Last Pain Scale 9 03/09/25, 11:01 Review of Systems 2 ROS Status of ROS 10 or more systems reviewed and unremark able except as noted in history and below PFSH PFSH Social History Little interest or pleasure in doing things: not at all Feeling down, depressed, or hopeless: not at all Exam Narrative Exam Narrative: Constituational: Awake/ alert, no apparent distress, well hydrated HENMT: normocephalic, no temporal scalp tenderness, + erythema R TM, normal L TM, external ears normal, moist oral mucous membranes and oropharynx normal Eyes: PERRL/EOMI and conjunctivae normal Neck: ROM intact, no meningeal signs Chest: inspection of chest normal Respiratory: Normal respiratory effort, clear to auscultation bilaterally Cardio: regular rate and regular rhythm GI: soft to palpation and non-tender Back: nontender MSK: ROM intact, +NVI Skin: no rashes or petechiae Neuro: + Facial droop with loss of nasolabial fold and R forehead non spared Psych: mental status grossly normal Constitutional Vital Signs, click to edit/add: Last Vital Signs Temp 98.6 F 03/12/25 14:29 Pulse 84 03/12/25 14:29 Resp 16 03/12/25 14:29 BP 141/73 03/12/25 14:29 Pulse Ox 98 03/12/25 14:29 O2 Del Method Room Air 03/12/25 14:29 Course Vital Signs Vital signs: Vital Signs Temperature 98.6 F 03/12/25 14:29 Pulse Rate 84 03/12/25 14:29 Respiratory Rate 16 03/12/25 14:29 Blood Pressure 141/73 03/12/25 14:29 Pulse Oximetry 98 03/12/25 14:29 Oxygen Delivery Method Room Air 03/12/25 14:29 Temperature 98.6 F 03/12/25 14:29 Pulse Rate 84 03/12/25 14:29 Respiratory Rate 16 03/12/25 14:29 Blood Pressure 141/73 03/12/25 14:29 Pulse Oximetry 98 03/12/25 14:29 Oxygen Delivery Method Room Air 03/12/25 14:29 Medical Decision Making MDM Narrative Medical decision making narrative: Patient is a well-appearing 24-year-old male who presented to the emergency department today for evaluation concerns for right-sided facial drooping. 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 Patient had been seen in the ER 03/09 per chart review at which time he had stable labs and stable CT imaging of the head at that time. Patient endorses the same headache today as he had at time of initial evaluation. Low clinical suspicion for any ischemic etiology. Discussed these findings with the patient including recommendations for supporti ve care of Cardenas's palsy and otitis media. Will discharge home with prednisone and valacyclovir in addition to amoxicillin for medical therapy for otitis. Referrals for neurology provided at discharge. Discussed signs and symptoms of any worsening condition and when to consider reevaluation by the emergency department. Patient verbalized an understanding of this and is agreeable with the plan to be discharged home. Medical Records Medical records reviewed: Yes I reviewed the patient's medical records Discharge Plan Discharge Clinical Impression: Facial paralysis/[place] palsy, Otitis media Patient Disposition: Home, Self-Care Prescriptions / Home Meds: New prednisone 20 mg tablet 60 mg PO DAILY 7 Days Qty: 21 0RF amoxicillin 875 mg tablet 875 mg PO BID Qty: 10 0RF valacyclovir 1 gram tablet 1,000 mg PO TID 7 Days Qty: 21 0RF Print Language: Indonesian Instructions: Cardenas Palsy (ED), Ear Infection (ED) Additional Instructions: Take antibiotics as prescribed for your ear infection. Additionally take prednisone and valacyclovir as prescribed for Cardenas's palsy. May take Tylenol or ibuprofen as needed for any pain. Follow-up with neurology for reevaluation in the next week as discussed. Referrals: Betina Martinez DO [Physician, Neurology] - 1 week Physician,Non-Staff, [Primary Care Provider] - 1 week Simba Foster MD [Physician, Neurology] - 1 week
[2025-03-12] MEDS: IBUPROFEN 600 MG TABLET PO (15:09)
== END 2025-03-12 15:15 | disposition home or self-care (01) ==
PROVIDERS: Emergency Provider Emergency Medicine
DX: G51.0 Bell's palsy (principal); H66.90 Otitis media, unspecified, unspecified ear
CPT/HCPCS: 99283